=== PATIENT | female | born 2000 | race Caucasian/White ===

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

== ENCOUNTER → 2021-01-02 11:49 | Outpatient (BNVA) | payer BC, SELFPAY | PROVIDERS: PCP Family Medicine; Visit Provider Podiatrist Foot & Ankle Surgery | DX: M79.673 Pain in unspecified foot (principal); M21.612 Bunion of left foot | CPT/HCPCS: 73630 ==

== ENCOUNTER 2021-01-02 12:52 | Outpatient (CLI) | payer BC, MEDICAID, SELFPAY ==
[2021-01-02 14:19] LABS: Alanine Aminotransferase 7 U/L (0-33); Aspartate Amino Transferase 14 U/L (0-32); Blood Urea Nitrogen 7 mg/dL (6-20); Calcium 8.9 mg/dL (8.5-10.5); Carbon Dioxide 24 mmol/L (22-29); Chloride 103 mmol/L (98-107); Glomerular Filtration Rate 158.9 mL/min (90-130); Glucose 78 mg/dL (65-115); Osmolality Calculated 277 mOsm/kg (285-295); Sodium 135 mmol/L (136-145)
== END 2021-01-02 12:53 | disposition home or self-care (01) ==
PROVIDERS: Visit Provider Podiatrist Foot & Ankle Surgery
DX: B35.1 Tinea unguium (principal); L60.0 Ingrowing nail
CPT/HCPCS: 80048; 84450; 84460

== ENCOUNTER → 2021-10-08 15:46 | Outpatient (BNVA) | payer BC, MEDICAID, SELFPAY | PROVIDERS: Visit Provider Podiatrist Foot & Ankle Surgery | DX: L60.0 Ingrowing nail (principal); B35.1 Tinea unguium | CPT/HCPCS: 11750; 99213 ==